=== PATIENT | male | born 1980 | race Caucasian/White ===

== ENCOUNTER 2022-12-27 20:37 | Emergency (ER) | payer MEDICAID ==
[~2022-12-27] VITALS: Ht 190.5 cm; Wt 110.5 kg
[~2022-12-27 20:37] MED LIST: LEVA15HF4 IH
[2022-12-27 20:53] VITALS: BP 124/77
[2022-12-27 21:20] LABS: BASOPHILS # (AUTO) 0.1 X10'3 (0-0.2); BASOPHILS % (AUTO) 0.5 % (0-1); EOSINOPHILS # (AUTO) 0.6 X10'3 (0-0.9); EOSINOPHILS % (AUTO) 4.8 % (0-6); HEMATOCRIT 46.1 % (42.0-52.0); HEMOGLOBIN 15.7 g/dl (14.0-17.9); LYMPHOCYTES # (AUTO) 2.9 X10'3 (1.1-4.8); LYMPHOCYTES % (AUTO) 22.1 % (21-51); MEAN CORPUSCULAR HEMOGLOBIN 29.5 PG (27.0-31.0); MEAN CORPUSCULAR VOLUME 86.9 FL (78-98); MEAN PLATELET VOLUME 8.4 FL (7.4-10.4); MONOCYTES # (AUTO) 0.6 X10'3 (0-0.9); MONOCYTES % (AUTO) 4.9 % (2-12); NEUTROPHILS # (AUTO) 8.9 X10'3 (1.8-7.7); NEUTROPHILS % (AUTO) 67.7 % (42-75); PLATELET COUNT 240 X10'3 (140-440); WHITE BLOOD COUNT 13.1 X10'3 (4.5-11.0)
[2022-12-27 21:33] LABS: ALANINE AMINOTRANSFERASE 30 U/L (12-78); ALBUMIN/GLOBULIN RATIO 1.1 (1.1-1.5); ALKALINE PHOSPHATASE 117 IU/L (46-116); ANION GAP 10 (8-16); ASPARTATE AMINO TRANSFERASE 16 U/L (10-37); BILIRUBIN,TOTAL 0.3 MG/DL (0.1-1.0); BLOOD UREA NITROGEN 9 MG/DL (7-18); BUN/CREATININE RATIO 5.8 (10.0-20.0); CALCIUM 9.2 MG/DL (8.5-10.1); CHLORIDE 107 MMOL/L (99-107); CREATININE 1.54 MG/DL (0.60-1.10); GLUCOSE 97 MG/DL (70-104); POTASSIUM 3.9 MMOL/L (3.5-5.1); SODIUM 143 MMOL/L (135-145); TOTAL CARBON DIOXIDE 26.1 MMOL/L (24-32); TOTAL PROTEIN 7.6 G/DL (6.4-8.2); eGFR 50 ML/MIN
--- NOTE | 2022-12-27 22:14 | NUR ---
Patient informed registration he was no longer willing to wait. LWOBS.
== END 2022-12-27 23:22 | disposition left against medical advice (07) ==
LOC: ER 20:38
DX: R42 Dizziness and giddiness (principal); Z53.21 Procedure and treatment not carried out due to patient leaving prior to being seen by health care provider
CPT/HCPCS: 36415; 71045; 80053; 83880; 84484; 85025; 93005; 99281

== ENCOUNTER 2024-09-10 12:51 | Emergency (ER) | payer SELFPAY ==
[~2024-09-10] VITALS: Ht 190.5 cm; Wt 107.0 kg
[2024-09-10 12:58] VITALS: TEMP 97.6
[2024-09-10] MEDS ORDERED: methylPREDNISolone sod succ 125mg/2ml vial IV ONE (13:45)
[2024-09-10] MEDS ORDERED: ALBU18HF2 INH (13:46)
[2024-09-10] MEDS ORDERED: BUDE10.22 INH (13:46)
[2024-09-10] MEDS: ipratropium/albuterol 3ml nebule NEB ONE (14:07)
[2024-09-10 14:08] VITALS: PULSE 79; RESP 19; O2SAT 98
[2024-09-10] MEDS: methylPREDNISolone sod succ 125mg/2ml vial IM ONE (14:08)
[2024-09-10 14:13] VITALS: PULSE 74; RESP 16; O2SAT 98
[2024-09-10 14:23] VITALS: BP 142/99; PULSE 98; RESP 20; O2SAT 98
== END 2024-09-10 14:25 | disposition home or self-care (01) ==
LOC: ER 12:51
DX: J45.901 Unspecified asthma with (acute) exacerbation (principal); Z88.6 Allergy status to analgesic agent; Z88.5 Allergy status to narcotic agent; Z79.899 Other long term (current) drug therapy
CPT/HCPCS: 94640; 96372; 99283; J2919; 94760